=== PATIENT | male | born 1990 | race African-American/Black ===

== ENCOUNTER 2021-09-17 19:13 | Emergency (ER) | payer SELFPAY ==
[~2021-09-17] VITALS: Ht 177.8 cm; Wt 113.0 kg
[2021-09-17 19:15] VITALS: BP 148/86
--- NOTE | 2021-09-17 20:14 | RAD ---
Study: XR FINGER(S)_LEFT 2+VIEWS_RT Indication: Crush injury. Comparison: None. Findings: Soft tissue injury with laceration to the distal aspect of the long finger. Along the radial margin o f the long finger at the level of the DIP joint and tuft, small foci of increased density are identif ied but there is no appreciable donor site from the adjacent phalanges. Congruent articular surfaces with maintained joint space height. Or soft tissue abnormality seen elsewhere. Impression: Laceration injury at the distal long finger with soft tissue gas. Small foci of increased density uzair ng the radial margin of the long finger DIP joint and tuft may represent retained debris. No cortical defect to indicate small fracture fragments. Attention on follow-up. Electronically signed by: SUNDAY COBIAN MD (09/17/2021 8:11 PM) [facility]
--- NOTE | 2021-09-17 20:22 | PHYS DOC ---
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 Patient cannot fully bend the DIP. Rates his pain at this time 6 out of 10. Does not know when his last tetanus was. Denies numbness. (AILYN CONTEH LOCOMOTIVE OPERATOR) Review of Systems: Review of Systems: Constitutional: Denies fever or chills. [] Eyes: Denies change in visual acuity. [] HENT: Denies nasal congestion or sore throat. [] Respiratory: Denies cough or shortness of breath. [] Cardiovascular: Denies chest pain or edema. [] GI: Denies abdominal pain, nausea, vomiting, bloody stools or diarrhea. [] : Denies dysuria. [] Musculoskeletal: Denies back pain or + left third finger joint pain. [] Integument: Denies rash. + Left third finger laceration [] Neurologic: Denies headache, focal weakness or sensory changes. [] Endocrine: Denies polyuria or polydipsia. [] Lymphatic: Denies swollen glands. [] Psychiatric: Denies depression or anxiety. [] (AILYN CONTEH LOCOMOTIVE OPERATOR) Heart Score: C/O Chest Pain: No ([facility] Physical Exam: PE: Constitutional: Well developed, well nourished, no acute distress, non-toxic appearance. [] HENT: Normocephalic, atraumatic, bilateral external ears normal, oropharynx moist, no oral exudates, nose normal. [] Eyes: PERRLA, EOMI, conjunctiva normal, no discharge. [] Neck: Normal range of motion, no tenderness, supple, no stridor. [] Cardiovascular:Heart rate regular rhythm, no murmur [] Lungs & Thorax: Bilateral breath sounds clear to auscultation [] Abdomen: Bowel sounds normal, soft, no tenderness, no masses, no pulsatile masses. [] Skin: Warm, dry, no erythema, no rash. Left third finger vertical laceration from tip of finger through the nailbed up to DIP. [] Back: No tenderness, no CVA tenderness. [] Extremities: Left middle finger tenderness, no cyanosis, no clubbing, left DIP ROM not intact, 1+ edema. [] Neurologic: Alert and oriented X 3, normal motor function, normal sensory function, no focal deficits noted. [] Psychologic: Affect normal, judgement normal, mood normal. [] (AILYN CONTEH APRN) Current Patient Data: Vital Signs: Vital Signs Date Time Temp Pulse Resp B/P (MAP) Pulse Ox O2 Delivery O2 Flow Rate FiO2 09/17/21 19:15 98.2 104 18 148/86 (106) 97 Room Air 98.2 (AILYN CONTEH APRN) EKG: EKG: [] (AILYN CONTEH APRN) Radiology/Procedures: Radiology/Procedures: [] Impression: [facility] [address] [place], [place] [id number] IMAGING REPORT Signed PATIENT: REILLY IRIZARRYOUNT: [id number] : 1990 LOCATION: ER AGE: 31 SEX: M EXAM STATUS: PRE ER ORD. PHYSICIAN: KAMAR BOGGS APRN REASON: CRUSH INJURY THIRD FINGER PROCEDURE: FINGER(S) LEFT Study: XR FINGER(S)_LEFT 2+VIEWS_RT Indication: Crush injury. Comparison: None. Findings: Soft tissue injury with laceration to the distal aspect of the long finger. Along the radial margin of the long finger at the level of the DIP joint and tuft, small foci of increased density are identified but there is no appreciable donor site from the adjacent phalanges. Congruent articular surfaces with maintained joint space height. Or soft tissue abnormality seen elsewhere. Impression: Laceration injury at the distal long finger with soft tissue gas. Small foci of increased density along the radial margin of the long finger DIP joint and tuft may represent retained debris. No cortical defect to indicate small fracture fragments. Attention on follow-up. Electronically signed by: SUNDAY COBIAN MD (09/17/2021 8:11 PM) [facility] DICTATED and SIGNED BY: SUNDAY COBIAN MD DATE: 09/17/21 [id number] (AILYN CONTEH APRN) Course & Med Decision Making: Course & Med Decision Making Pertinent Labs and Imaging studies reviewed. (See chart for details) See HPI. Alert and oriented x4. Ambulatory steady gait. Speaks in full clear sentences. Vital signs within normal limits. Radial pulse strong present. Bleeding controlled. Cap refill less than 2 seconds. Patient cannot bend at the DIP and it appears that the ligament has been sliced. The laceration did go through the whole nailbed vertically. X-ray shows no fracture. Patient given Zosyn IV and tetanus. I spoke with Dr. Mcgowan with research trauma and he accepted the patient for transfer ED to ED. Patient hand is dressed and splinted. Laceration repair Location: Left middle finger vertical that goes from tip of finger through the nailbed vertically down to the PIP. Local anesthesia: Digital block 1% lidocaine Interrupted sutures/Internal sutures: none. Being transferred to a facility for repair with specialty Nerve/ligament/muscle damage: Cannot bend at the DIP Cleaning and irrigation: Saline and chlorhexidine The appropriate timeout was taken. The area was prepped and draped in the usual sterile fashion. The wound was copiously irrigated with normal saline and chlorhexidine. Patient tolerated well without complication. Dressing was applied to the area follow-up education is given to observe for signs and symptoms of infection, bleeding and to follow-up promptly if these occur. Patient can return in 48 hours for a wound recheck. Sutures to be removed in 7 to 10 days. [] (AILYN CONTEH APRN) Course & Med Decision Making Patient was evaluated by MLP. Care and disposition plan formulated independently by MLP. I was available for consult. (JESSE BLOUNT DO) Kaushik Disclaimer: Kaushik Disclaimer: This electronic medical record was generated, in whole or in part, using a voice recognition dictation system. (AILYN CONTEH APRN) Departure Departure Impression: Primary Impression: Laceration of finger Qualified Codes: S61.323A - Laceration with foreign body of left middle finger with damage to nail, initial encounter Disposition: 04 INTERMEDIATE CARE FACILITY ([facility]) Condition: STABLE AILYN CONTEH APRN Sep 17, 2021 20:22 JESSE BLOUNT DO Sep 19, 2021 18:20
[2021-09-18] MEDS ORDERED: PIPERACILLIN/TAZOBACTAM 4.5 GM in IV DEXTROSE 5% 100ML 100 ML IV ONE (00:30)
[2021-09-18] MEDS ORDERED: LIDOCAINE 1%/EPI 1:100,000 20 ML VIAL. INJ ONE (00:30)
[2021-09-18] MEDS ORDERED: DIPHTH,PERTUSS(ACELL),TET TOX 0.5 ML DISP.SYRIN. VAX IM ONE (00:30)
== END 2021-09-18 02:30 ==
LOC: ER 19:13
DX: S61.323A Laceration with foreign body of left middle finger with damage to nail, initial encounter (principal); W23.0XXA Caught, crushed, jammed, or pinched between moving objects, initial encounter; Y93.89 Activity, other specified; Y92.89 Other specified places as the place of occurrence of the external cause; Y99.8 Other external cause status
CPT/HCPCS: 12002; 73140; 90471; 90715; 99285; J2543; J7060